=== PATIENT | male | born 1935 | race Caucasian/White ===

== ENCOUNTER → 2017-02-11 | Day surgery (SDC) | payer MEDICARE ==
[~2017-02-11] VITALS: Ht 188 cm; Wt 93.0 kg
[~2017-02-11] MED LIST: BUPIVACAINE HCL PF 0.5% 30 ML VIAL ONE; CEPH-459 PO; EXFO10TA2 PO; FAMOTIDINE 20 MG/2 ML VIAL ONE; LACTATED RINGER'S 1000 ML INJ 1,000 ML ONE; LIDOCAINE HCL 2% 50 ML VIAL ONE; METO100T9 PO; METO50TA PO; MIDAZOLAM HCL 2 MG/2 ML VIAL ONE; NEOMYCIN/POLYMYXIN 1 ML G.U. IRRIGANT TOPICAL ONE; NORC5TAB PO; PROPOFOL 200 MG/20 ML AMP IV ONE; RIVA20 PO; SODIUM CHLORIDE 0.9% INJ 50 ML ONE; XARE20TA PO; ceFAZolin INJ 1,000 MG VIAL ONE
[2017-02-11 08:07] VITALS: BP 126/75; PULSE 66; RESP 16; TEMP 98.2; O2SAT 96
[2017-02-11 08:32] LABS: HEMATOCRIT 52.4 % (39.0-51.0); MEAN CELL VOLUME 91.1 FL (80.0-100.0); MEAN CORPUSCULAR HEMOGLOBIN 29.1 PG (27.0-34.0); PLATELET COUNT 170 TH/MM3 (150-450); RED BLOOD COUNT 5.76 MIL/MM3 (4.50-5.90); RED CELL DISTRIBUTION WIDTH 14.1 % (11.6-17.2); REVIEW FLAG FINAL; WHITE BLOOD COUNT 6.8 TH/MM3 (4.0-11.0)
[2017-02-11 10:05] VITALS: TEMP 97.3
--- NOTE | 2017-02-11 10:36 | MP ---
cc: DANYEL MOBLEY III, M.D. DATE OF SURGERY: 02/11/2017 PREOPERATIVE DIAGNOSIS Left fourth finger trigger finger. POSTOPERATIVE DIAGNOSIS Left fourth finger trigger finger. PROCEDURE Left fourth A1 james release. SURGEON Danyel Mobley III, MD DETAILS OF PROCEDURE The patient was brought to the operating room and placed supine on the operating table. After the correct site and side of surgery were verified by members of each team in the room multiple times including the patient and myself and after adequate preoperative markings and preoperative written consent were verified by everyone and after an adequate timeout was performed to everyone's satisfaction and after adequate IV sedation had been achieved, the left upper extremity was prepped and draped in a traditional sterile surgical fashion. A 50/50 mixture of 2% plain lidocaine and 0.5% plain Marcaine was infiltrated in the skin and subcutaneous tissue in the distal palmar flexion crease in the palm over the fourth A1 james. The limb was exsanguinated with a gentle Marcus wrap. A highly placed well-padded axillary tourniquet was inflated to 200 mmHg for a total of 7 minutes. A transversely oriented incision 1 cm in length was made in the flexion crease. Blunt dissection was performed. Bipolar electrocautery was then used to control subcutaneous tissue and skin bleeders. The extensor tendon was identified and the sheath was very thickened and was redundant and there were many different bands of constriction including the A1 james. These were all released proximally and distally. There was a thickened tenosynovium and the superficial tendon was slightly abraded from all that has been going on but the deep and superficial tendons were otherwise intact. There were no other anatomic abnormalities and no other bands of constriction proximally or distally. The finger moved normally on passive range of motion examination without any crepitance or constriction. Thorough irrigation was performed with a liter's worth of saline throughout the remainder of the case. The axillary tourniquet was then released and pressure was held for five minutes. There was no bleeding and the skin edges were re-approximated using running 4-0 nylon suture. The hand and arm were thoroughly cleansed and dried. Betadine and Adaptic dressings were applied atop the wound followed by a bulky soft dressing. A circumferential dressing was applied. The patient was awakened from anesthesia and transported to the post-anesthesia care unit awake and in stable condition. Sponge, needle and instrument counts were correct at the end of the case as reported by the nurses in the room. MD GERARD Wilson III/FELIPE /10:09 AM /10:30 AM
[2017-02-11 10:45] VITALS: BP 126/72; PULSE 55; RESP 16; O2SAT 95
== END | disposition home or self-care (01) ==
LOC: PHSDC 07:19
PROVIDERS: ATTEND Orthopaedic Surgery Hand Surgery
DX: M65.342 Trigger finger, left ring finger (principal); I48.91 Unspecified atrial fibrillation; I10 Essential (primary) hypertension; Z79.01 Long term (current) use of anticoagulants
CPT/HCPCS: 26055; 36415; 85027; J0690; J2250; J7120